=== PATIENT | female | born 1980 | race Caucasian/White ===

== ENCOUNTER 2023-01-24 10:17 | Emergency (ER) | payer MEDICARE ==
--- NOTE | 2023-01-24 10:24 | ERPHSYRPT ---
- History of Present Illness Time Seen by Provider: 01/24/23 10:24 Source: patient, EMS Exam Limitations: no limitations Physician History: This is an obese 42-year-old white female patient who has a history of von Hippel-Lindau disease and presents to our emergency department by the paramedics at [facility] who provided us independent medical history. In addition, I reviewed the [facility] emergency department visit that this patient had on 01/19/2023. This is another source of independent medical history. Patient was seen at [facility] emergency department on 01/19/2023 because of complaints of right flank pain. At that visit, patient was found to have a 30 mm right basal lung mass. She was to be scheduled to see an oncologist in [place]. The e xact date and time of the appointment is pending. Over the weekend, since that visit, she started having worsening shortness of breath. The patient does see a pain specialist and this specialist is a physician out of [facility]. She felt that she wanted to be seen at our facility. The paramedics were contacted because of complaints of shortness of breath. Patient appeared short of breath and so the paramedics placed her on 4 L oxygen via nasal cannula. Patient arrived to our emergency department with an oxygenation saturation level of 96% on 4 L facemask. Patient denies chest pain. However she still complains of her right flank pain. Timing/Duration: day(s) (3), worse Severity of Dyspnea-Max: mild (To moderate) Severity of Dyspnea-Current: mild (To moderate) Possible Cause: occasional episodes Modifying Factors: Improves With: activity (Worsens) Associated Symptoms: anxiety, No chest pain/discomfort, No wheezing, No hemoptysis, No calf pain Allergies/Adverse Reactions: peanut Allergy (Verified 01/24/23 10:28) Home Medications: Albuterol 2.5 mg/3 ml Neb [Proventil 2.5 mg/3 ml Neb] 2 puff IH Q4H PRN PRN 01/24/23 [History] Amitriptyline HCl 25 mg [Amitriptyline 25 mg Tablet] 1 tab PO HS 01/24/23 [History] Budesonide 0.5 mg/2 ml [Pulmicort 0.5 mg/2 ml Respules] 1 puff IH DAILY 01/24/23 [History] Duloxetine HCl 1 tab PO BID 01/24/23 [History] Gabapentin 1 tab PO TID 01/24/23 [History] Oxycodone HCl/Acetaminophen [Percocet 5-325 mg Tablet] 1 tab PO QID PRN 01/24/23 [History] Travel Risk - International Travel Have you traveled outside of the country in past 3 weeks: No - Coronavirus Screening Are you exhibiting any of the following symptoms?: Yes Symptoms: Fever, Shortness of Breath Close contact with a COVID-19 positive Pt in past 14-21 Days: No - Review of Systems Constitutional: Fever Eyes: No Symptoms Ears, Nose, & Throat: No Symptoms Respiratory: Dyspnea, Dyspnea on Exertion (JAMES) Cardiac: No Symptoms Abdominal/Gastrointestinal: No Symptoms Genitourinary Symptoms: No Symptoms Musculoskeletal: No Symptoms Skin: No Symptoms Neurological: No Symptoms Psychological: No Symptoms Endocrine: No Symptoms Hematologic/Lymphatic: No Symptoms Immunological/Allergic: No Symptoms All Other Systems: Reviewed and Negative - Past Medical History Pertinent Past Medical History: Yes - Past Surgical History Past Surgical History: Yes - Nursing Vital Signs Nursing Vital Signs: Initial Vital Signs Temperature 100.0 F 01/24/23 10:29 Pulse Rate 107 H 01/24/23 10:29 Respiratory Rate 39 H 01/24/23 10:29 Blood Pressure 110/81 01/24/23 10:29 O2 Sat by Pulse Oximetry 90 L 01/24/23 10:29 Pain Scale Pain Intensity 0 - Physical Exam General Appearance: no apparent distress, alert, anxiety, obese Eye Exam: PERRL/EOMI, eyes nml inspection Ears, Nose, Throat Exam: hearing grossly normal, normal ENT inspection, normal pharynx Neck Exam: normal inspection, non-tender, supple, full range of motion Respiratory Exam: normal breath sounds, lungs clear, airway intact, No chest tenderness, No respiratory distress Cardiovascular/Chest Exam: tachycardia Abdominal/Gastrointestinal Exam: soft, normal bowel sounds, No tenderness Rectal Exam: not done Extremity Exam: non-tender Neurologic Exam: alert, oriented x 3, cooperative, seismograph shooter II-XII nml as tested, sensation nml Skin Exam: normal color, warm, dry Lymphatic Exam: No adenopathy SpO2 Interpretation: hypoxic O2 Delivery: Room Air - Course Nursing assessment & vital signs reviewed: Yes EKG Interpreted by Me: RATE (106), Sinus Tach, NORMAL AXIS, NORMAL INTERVALS, NORMAL QRS, NORMAL ST-T, Other (No acute ischemic changes on today's twelve-lead EKG) Ordered Tests: Active Orders 24 hr Category Date Time Status EKG-ER Only STAT Care 01/24/23 10:44 Active IV Insertion STAT Care 01/24/23 10:44 Active Pulse Oximetry (ED) STAT Care 01/24/23 10:44 Active CHEST 1 VIEW (PORTABLE) Stat Exams 01/24/23 10:44 Completed CHEST WITH CONTRAST [CT] Stat Exams 01/24/23 12:37 Completed ABG [ARTERIAL BLOOD GASES] Urgent Lab 01/24/23 13:30 Completed ARTERIAL BLOOD GASES Stat Lab 01/24/23 10:50 Completed BLOOD CULTURE Stat Lab 01/24/23 11:01 Received CBC W DIFF Stat Lab 01/24/23 10:35 Completed CMP Stat Lab 01/24/23 10:35 Completed D-DIMER QUANTITATIVE Stat Lab 01/24/23 10:35 Completed NT PRO BNPII Stat Lab 01/24/23 10:35 Completed TROPONIN Q4H Lab 01/24/23 10:35 Completed TROPONIN Q4H Lab 01/24/23 14:25 Completed TROPONIN Q4H Lab 01/24/23 18:45 Ordered BiPap/CPAP STAT RT 01/24/23 13:42 Active Respiratory Therapy Assessment DAILY RT 01/24/23 13:19 Active Medication Summary Generic Name Dose Route Start Last Admin Trade Name Freq PRN Reason Stop Dose Admin Sodium Chloride 1,000 mls @ 999 mls/hr 01/24/23 15:07 01/24/23 15:17 Sodium Chloride 0.9% 1000 Ml IV 01/24/23 16:07 999 mls/hr .Q1H1M STA Administration Discontinued Medications Generic Name Dose Route Start Last Admin Trade Name Freq PRN Reason Stop Dose Admin Albuterol Sulfate 2.5 mg 01/24/23 13:14 01/24/23 13:16 Albuterol Sulfate 2.5 Mg/3 Ml Neb IH 01/24/23 13:15 2.5 mg STAT ONE Administration Albuterol Sulfate Confirm 01/24/23 13:15 Albuterol Sulfate 2.5 Mg/3 Ml Neb Administered 01/24/23 13:16 Dose 2.5 mg IH .STK-MED ONE Methylprednisolone Sodium 0 mg 01/24/23 13:14 01/24/23 13:31 Succinate 125 mg/ Sterile IV 01/24/23 13:15 125 mg Water 2 ml STAT ONE Administration Enoxaparin Sodium 130 mg 01/24/23 13:13 01/24/23 13:33 Enoxaparin Sodium 150 Mg/Ml Syringe SQ 01/24/23 13:14 130 mg STAT ONE Administration Sodium Chloride 500 mls @ 500 mls/hr 01/24/23 12:37 01/24/23 13:58 Sodium Chloride 0.9% 500 Ml IV 01/24/23 13:36 Infused .Q1H ONE Infusion Sodium Chloride Confirm 01/24/23 12:50 Sodium Chloride 0.9% 500 Ml Administered 01/24/23 12:51 Dose 500 mls @ ud IV .STK-MED ONE Sodium Chloride Confirm 01/24/23 15:15 Sodium Chloride 0.9% 1000 Ml Administered 01/24/23 15:16 Dose 1,000 mls @ ud .ROUTE .STK-MED ONE Lorazepam 1 mg 01/24/23 12:37 01/24/23 12:47 Lorazepam 2 Mg/1 Ml 2 Mg Vial IV 01/24/23 12:38 1 mg STAT ONE Administration Lorazepam Confirm 01/24/23 12:47 Lorazepam 2 Mg/1 Ml 2 Mg Vial Administered 01/24/23 12:48 Dose 2 mg .ROUTE .STK-MED ONE Methylprednisolone Sodium Succinate Confirm 01/24/23 13:30 Methylprednis Sod Succ 125 Mg/2 Ml Vial Administered 01/24/23 13:31 Dose 125 mg .ROUTE .STK-MED ONE Morphine Sulfate 4 mg 01/24/23 11:10 01/24/23 11:17 Morphine Sulfate 4 Mg/Ml Injection IV 01/24/23 11:11 4 mg STAT ONE Administration Morphine Sulfate Confirm 01/24/23 11:16 Morphine Sulfate 4 Mg/Ml Injection Administered 01/24/23 11:17 Dose 4 mg .ROUTE .STK-MED ONE Morphine Sulfate 2 mg 01/24/23 13:14 01/24/23 14:07 Morphine Sulfate 2 Mg/Ml Inj IV 01/24/23 13:15 Not Given STAT ONE Morphine Sulfate Confirm 01/24/23 13:27 Morphine Sulfate 2 Mg/Ml Inj Administered 01/24/23 13:28 Dose 2 mg .ROUTE .STK-MED ONE Ondansetron HCl 4 mg 01/24/23 11:10 01/24/23 11:17 Ondansetron Hcl 4 Mg/2 Ml Vial IV 01/24/23 11:11 4 mg STAT ONE Administration Ondansetron HCl Confirm 01/24/23 11:16 Ondansetron Hcl 4 Mg/2 Ml Vial Administered 01/24/23 11:17 Dose 4 mg .ROUTE .STK-MED ONE Sterile Water Confirm 01/24/23 13:30 Water For Injection,Sterile 10 Ml Vial Administered 01/24/23 13:31 Dose 10 ml IJ .STK-MED ONE Lab/Rad Data: Laboratory Result Diagrams 01/24/23 10:35 01/24/23 10:35 Laboratory Results 01/24/23 01/24/23 01/24/23 Range/Units 14:25 13:30 10:50 WBC (4.0-10.5) x10^3/uL RBC (4.1-5.4) x10^6/uL Hgb (12.0-16.0) g/dL Hct (35-47) % MCV (78-100) fL MCH (26-32) pg MCHC (32-36) g/dL RDW (11.5-14.0) % Plt Count (150-450) x10^3/uL MPV (7.5-11.0) fL Gran % (36.0-66.0) % Immature Gran % (Auto) (0.00-0.4) % Nucleat RBC Rel Count (0.00-0.1) % Eos # (Auto) (0-0.5) x10^3/uL Immature Gran # (Auto) (0.00-0.03) x10^3u/L Absolute Lymphs (auto) (1.0-4.6) x10^3/uL Absolute Monos (auto) (0.0-1.3) x10^3/uL Absolute Nucleated RBC (0.00-0.01) x10^3u/L Lymphocytes % (24.0-44.0) % Monocytes % (0.0-12.0) % Eosinophils % (0.00-5.0) % Basophils % (0.0-0.4) % Absolute Granulocytes (1.4-6.9) x10^3/uL Basophils # (0-0.4) x10^3/uL D-Dimer (0.0-0.50) mg/L Puncture Site LEFT RADIAL pCO2 39 (35-45) mmHg pO2 71 L (75-100) mmHg Base Excess -2.5 L (-2.0-2.0) O2 Saturation 93.2 L (94-100) g/dF ABG pH 7.37 (7.35-7.45) ABG HCO3 22.5 (22-28) ABG O2 Sat (Measured) 96.2 (95-100) % El Test NOT APPLICABLE A-a Gradient 80 a/A Ratio 0.47 Hemoglobin 13.3 Carboxyhemoglobin 2.2 (0.0-6.9) % THgb Methemoglobin 0.9 L (1.4-1.5) % Temperature 37.0 C POC O2 Flow Rate 28 % Sodium (137-145) mmol/L Potassium 4.8 (3.5-5.1) mmol/L Chloride (98-107) mmol/L Carbon Dioxide (22-30) mmol/L Anion Gap (5-15) MEQ/L BUN (7-17) mg/dL Creatinine (0.52-1.04) mg/dL Estimated GFR ML/MIN Glucose (74-106) mg/dL Calcium (8.4-10.2) mg/dL Total Bilirubin (0.2-1.3) mg/dL AST (14-36) U/L ALT (0-35) U/L Alkaline Phosphatase (38-126) U/L Troponin I < 0.012 (0.000-0.034) ng/mL NT-Pro-B Natriuret Pep (<300) pg/mL Serum Total Protein (6.3-8.2) g/dL Albumin (3.5-5.0) g/dL Influenza Type A Ag NEGATIVE (NEGATIVE) Influenza Type B Ag NEGATIVE (NEGATIVE) RSV (PCR) NEGATIVE (NEGATIVE) SARS-CoV-2 (PCR) NEGATIVE (NEGATIVE) 01/24/23 01/24/23 01/24/23 Range/Units 10:50 10:35 10:35 WBC (4.0-10.5) x10^3/uL RBC (4.1-5.4) x10^6/uL Hgb (12.0-16.0) g/dL Hct (35-47) % MCV (78-100) fL MCH (26-32) pg MCHC (32-36) g/dL RDW (11.5-14.0) % Plt Count (150-450) x10^3/uL MPV (7.5-11.0) fL Gran % (36.0-66.0) % Immature Gran % (Auto) (0.00-0.4) % Nucleat RBC Rel Count (0.00-0.1) % Eos # (Auto) (0-0.5) x10^3/uL Immature Gran # (Auto) (0.00-0.03) x10^3u/L Absolute Lymphs (auto) (1.0-4.6) x10^3/uL Absolute Monos (auto) (0.0-1.3) x10^3/uL Absolute Nucleated RBC (0.00-0.01) x10^3u/L Lymphocytes % (24.0-44.0) % Monocytes % (0.0-12.0) % Eosinophils % (0.00-5.0) % Basophils % (0.0-0.4) % Absolute Granulocytes (1.4-6.9) x10^3/uL Basophils # (0-0.4) x10^3/uL D-Dimer (0.0-0.50) mg/L Puncture Site RIGHT RADIAL pCO2 35 (35-45) mmHg pO2 79 (75-100) mmHg Base Excess -1.3 (-2.0-2.0) O2 Saturation 94.7 (94-100) g/dF ABG pH 7.42 (7.35-7.45) ABG HCO3 22.7 (22-28) ABG O2 Sat (Measured) 98.0 (95-100) % El Test YES A-a Gradient 134 a/A Ratio 0.37 Hemoglobin 13.8 Carboxyhemoglobin 2.4 (0.0-6.9) % THgb Methemoglobin 1.0 L (1.4-1.5) % Temperature 37.0 C POC O2 Flow Rate 36 % Sodium 135 L (137-145) mmol/L Potassium 4.5 4.7 (3.5-5.1) mmol/L Chloride 99 (98-107) mmol/L Carbon Dioxide 21 L (22-30) mmol/L Anion Gap 19.0 H (5-15) MEQ/L BUN 12 (7-17) mg/dL Creatinine 0.90 (0.52-1.04) mg/dL Estimated GFR > 60.0 ML/MIN Glucose 188 H (74-106) mg/dL Calcium 9.0 (8.4-10.2) mg/dL Total Bilirubin 1.70 H (0.2-1.3) mg/dL AST 25 (14-36) U/L ALT 21 (0-35) U/L Alkaline Phosphatase 164 H (38-126) U/L Troponin I < 0.012 (0.000-0.034) ng/mL NT-Pro-B Natriuret Pep 251 (<300) pg/mL Serum Total Protein 6.7 (6.3-8.2) g/dL Albumin 3.5 (3.5-5.0) g/dL Influenza Type A Ag (NEGATIVE) Influenza Type B Ag (NEGATIVE) RSV (PCR) (NEGATIVE) SARS-CoV-2 (PCR) (NEGATIVE) 01/24/23 01/24/23 Range/Units 10:35 10:35 WBC 20.7 H (4.0-10.5) x10^3/uL RBC 4.36 (4.1-5.4) x10^6/uL Hgb 12.9 (12.0-16.0) g/dL Hct 39.1 (35-47) % MCV 89.7 (78-100) fL MCH 29.6 (26-32) pg MCHC 33.0 (32-36) g/dL RDW 12.6 (11.5-14.0) % Plt Count 485 H (150-450) x10^3/uL MPV 9.3 (7.5-11.0) fL Gran % 84.1 H (36.0-66.0) % Immature Gran % (Auto) 1.0 H (0.00-0.4) % Nucleat RBC Rel Count 0.0 (0.00-0.1) % Eos # (Auto) 0.14 (0-0.5) x10^3/uL Immature Gran # (Auto) 0.20 H (0.00-0.03) x10^3u/L Absolute Lymphs (auto) 1.71 (1.0-4.6) x10^3/uL Absolute Monos (auto) 1.17 (0.0-1.3) x10^3/uL Absolute Nucleated RBC 0.00 (0.00-0.01) x10^3u/L Lymphocytes % 8.3 L (24.0-44.0) % Monocytes % 5.7 (0.0-12.0) % Eosinophils % 0.7 (0.00-5.0) % Basophils % 0.2 (0.0-0.4) % Absolute Granulocytes 17.42 H (1.4-6.9) x10^3/uL Basophils # 0.05 (0-0.4) x10^3/uL D-Dimer 2.88 H* (0.0-0.50) mg/L Puncture Site pCO2 (35-45) mmHg pO2 (75-100) mmHg Base Excess (-2.0-2.0) O2 Saturation (94-100) g/dF ABG pH (7.35-7.45) ABG HCO3 (22-28) ABG O2 Sat (Measured) (95-100) % El Test A-a Gradient a/A Ratio Hemoglobin Carboxyhemoglobin (0.0-6.9) % THgb Methemoglobin (1.4-1.5) % Temperature C POC O2 Flow Rate % Sodium (137-145) mmol/L Potassium (3.5-5.1) mmol/L Chloride (98-107) mmol/L Carbon Dioxide (22-30) mmol/L Anion Gap (5-15) MEQ/L BUN (7-17) mg/dL Creatinine (0.52-1.04) mg/dL Estimated GFR ML/MIN Glucose (74-106) mg/dL Calcium (8.4-10.2) mg/dL Total Bilirubin (0.2-1.3) mg/dL AST (14-36) U/L ALT (0-35) U/L Alkaline Phosphatase (38-126) U/L Troponin I (0.000-0.034) ng/mL NT-Pro-B Natriuret Pep (<300) pg/mL Serum Total Protein (6.3-8.2) g/dL Albumin (3.5-5.0) g/dL Influenza Type A Ag (NEGATIVE) Influenza Type B Ag (NEGATIVE) RSV (PCR) (NEGATIVE) SARS-CoV-2 (PCR) (NEGATIVE) - Progress Progress: re-examined Air Movement: fair Progress Note: 01/24/23 13:42 Chest x-ray was interpreted by the radiologist and I reviewed the impression. Shows right mid to lower lung opacity presumed known mass. There is mild left base subsegmental atelectasis/scarring. This patient's medical issue is 1 of high complexity. Level complexity in the work-up performed is based on review of the patient's past medical history, review of the patient's medication list, review of the patient's drug allergies, history of present illness, and physical findings on examination. The initial work-up included placement of intravenous line, chest x-ray, respiratory therapy evaluation, ABG, CBC, CMP, D-dimer, troponin level, twelve-lead EKG. The twelve-lead EKG and ABG results were reviewed and interpreted by me. Patient's D-dimer is 2.88 and her troponin level is within normal limits. The patient has normal GFR. We attempted to perform a CT scan of the chest with contrast to evaluate for pulmonary embolus. However, the patient did not to lerate lying flat. She returned back to the emergency department. It was noted that she was having wheezing, grunting episodes and more difficulty breathing. Respiratory therapy reevaluated the patient. We opted to place the patient on BiPAP. We repeated the arterial blood gas prior to placement on BiPAP. The repeat pH is now 7.39 down from 7.42. The CO2 was 34 and now 39. Clinically, the patient appears to have more struggling with the breathing. She does have leukocytosis with a left shift. Patient did give us permission to intubate her in the event we feel it is necessary. I did provide her with Solu-Medrol 125 mg intravenous x1 as well as Lovenox 130 mg subcutaneous x1. 01/24/23 14:50 CT scan of the chest with contrast shows no obvious pulmonary embolus. There is a large right mid to lower lung effusion. There is complete right lower lobe and to a lesser degree, right middle lobe atelectasis. 01/24/23 15:[address] Milton who is emergency department physician on at [facility]. I reviewed the above-stated history, physical findings and results of our work-up. I also discussed our interventions on this patient. He accepts the patient in transfer. Blood Culture(s) Obtained: Yes Counseled pt/family regarding: lab results, diagnosis, rad results Medical Desision Making - Independent Historian Additional History obtained from: Email Marketing Coordinator/EMT - External Record(s) Reviewed Records reviewed as a part of evaluation & management: Discharge Summary (From the emergency department at [facility]) - Diagnostic Testing Diagnostic test were ordered, analyzed, and reviewed by me: Yes Radiological Interpretation: Reviewed by me, Teleradiologist Report - Risk of complications The pt has a high risk of morbidity or mortality based on: Decision regarding hospitilization or escalation of hosp level of care - Departure Departure Disposition: Transfer Clinical Impression: Right lower lobe lung mass, Mass of lower lobe of left lung, Pleural effusion, right, Leukocytosis, Hypoxia, Fever Condition: Fair Critical Care Time: Yes Critical Care Time(excluding separately billable procedures): Critical 30-74 mins (45) Referrals: NAIDA LANTIGUA [Primary Care Provider] - Follow up/PCP as directed
[2023-01-24 10:47] VITALS: TEMP 100
[2023-01-24 10:58] LABS: A-aADO2 134; ABG HEMOGLOBIN 13.8; ABG POTASSIUM 4.5 (3.5-5.1); ABG SITE RIGHT RADIAL; ALLEN TEST OK? YES; ARTERIAL BLOOD GAS BASE EXCESS -1.3 (-2.0-2.0); ARTERIAL BLOOD GAS FIO2 36 %; ARTERIAL BLOOD GAS PCO2 35 mmHg (35-45); ARTERIAL BLOOD GAS PO2 79 mmHg (75-100); ARTERIAL BLOOD GAS pH 7.42 (7.35-7.45); CARBOXYHEMOGLOBIN 2.4 % THgb (0.0-6.9); HCO3- 22.7 (22-28); HGB O2 SAT 94.7 g/dF (94-100); paO2 pAO1 0.37
[2023-01-24 11:00] LABS: Absolute Neutrophil Ct (ANC) 17.42 x10^3/uL (1.4-6.9); BASOPHIL % 0.2 % (0.0-0.4); Basophil (Absolute #) 0.05 x10^3/uL (0-0.4); Eosinophil % 0.7 % (0.00-5.0); Eosinophil (Absolute #) 0.14 x10^3/uL (0-0.5); Hematocrit 39.1 % (35-47); Hemoglobin 12.9 g/dL (12.0-16.0); Lymphocyte (Absolute #) 1.71 x10^3/uL (1.0-4.6); Lymphocytes % 8.3 % (24.0-44.0); Mean Cell Volume 89.7 fL (78-100); Mean Corpuscular Hemoglobin 29.6 pg (26-32); Mean Platelet Volume 9.3 fL (7.5-11.0); Monocyte (Absolute #) 1.17 x10^3/uL (0.0-1.3); Monocytes % 5.7 % (0.0-12.0); Neutrophil % 84.1 % (36.0-66.0); Platelet Count 485 x10^3/uL (150-450); Red Blood Count 4.36 x10^6/uL (4.1-5.4); Red Cell Distribution Width 12.6 % (11.5-14.0); White Blood Count 20.7 x10^3/uL (4.0-10.5)
[2023-01-24] MEDS ORDERED: Zofran 4 MG/2 ML VIAL IV ONE (11:10)
[2023-01-24] MEDS ORDERED: MORPHINE SULFATE 4 MG INJ IV ONE (11:10)
[2023-01-24] MEDS ORDERED: Zofran 4 MG/2 ML VIAL ONE (11:16)
[2023-01-24] MEDS ORDERED: MORPHINE SULFATE 4 MG INJ ONE (11:16)
[2023-01-24 11:26] LABS: NT PRO BNPII 251 pg/mL (<300); TROPONIN < 0.012 ng/mL (0.000-0.034)
[2023-01-24 12:02] LABS: INFLUENZA A NEGATIVE (NEGATIVE); INFLUENZA B NEGATIVE (NEGATIVE); RESPIRATORY SYNCTIAL VIRUS NEGATIVE (NEGATIVE); SARS-CoV-2 Xpert Express NEGATIVE (NEGATIVE)
[2023-01-24 12:02] LABS: ALBUMIN 3.5 g/dL (3.5-5.0); ALKALINE PHOSPHATASE 164 U/L (38-126); BLOOD UREA NITROGEN 12 mg/dL (7-17); CHLORIDE 99 mmol/L (98-107); Carbon Dioxide 21 mmol/L (22-30); EST GLOMERULAR FILTRATION RATE > 60.0 ML/MIN; Glucose 188 mg/dL (74-106); Potassium 4.7 mmol/L (3.5-5.1); SGOT/AST 25 U/L (14-36); SGPT/ALT 21 U/L (0-35); SODIUM 135 mmol/L (137-145); Total Protein 6.7 g/dL (6.3-8.2)
--- NOTE | 2023-01-24 12:14 | XRAY ---
Indication: Short of breath. Recent diagnosis right lower lobe mass from [facility]. Comparison: None Portable chest demonstrates right mid to lower lung opacity presumed known mass. Mild left base subsegmental atelectasis/scarring. Heart not enlarged. Bony thorax intact.
[2023-01-24] MEDS ORDERED: Sodium Chloride 0.9% 500 ML 500 ML IV ONE ×2 (12:37→12:50)
[2023-01-24] MEDS ORDERED: Ativan 2 MG/1 ML VIAL IV ONE (12:37)
[2023-01-24] MEDS ORDERED: Ativan 2 MG/1 ML VIAL ONE (12:47)
[2023-01-24] MEDS ORDERED: ENOXAPARIN SODIUM SQ ONE (13:13)
[2023-01-24] MEDS ORDERED: PROVENTIL 2.5 MG/3 ML NEB IH ONE ×2 (13:14→13:15)
[2023-01-24] MEDS ORDERED: solu-MEDROL 125 MG, Sterile H2O 10 ml 2 ML IV ONE ×2 (13:14)
[2023-01-24] MEDS ORDERED: MORPHINE SULFATE 2 MG INJ ONE (13:27)
[2023-01-24] MEDS ORDERED: solu-MEDROL ONE (13:30)
[2023-01-24] MEDS ORDERED: Sterile H2O 10 ml IJ ONE (13:30)
[2023-01-24] MEDS: MORPHINE SULFATE 2 MG INJ IV ONE ×2 (13:31→14:07)
[2023-01-24 13:43] LABS: A-aADO2 80; ABG HEMOGLOBIN 13.3; ABG POTASSIUM 4.8 (3.5-5.1); ARTERIAL BLD GAS O2 SATURATION 96.2 % (95-100); ARTERIAL BLOOD GAS BASE EXCESS -2.5 (-2.0-2.0); ARTERIAL BLOOD GAS FIO2 28 %; ARTERIAL BLOOD GAS PCO2 39 mmHg (35-45); ARTERIAL BLOOD GAS PO2 71 mmHg (75-100); ARTERIAL BLOOD GAS pH 7.37 (7.35-7.45); CARBOXYHEMOGLOBIN 2.2 % THgb (0.0-6.9); HCO3- 22.5 (22-28); HGB O2 SAT 93.2 g/dF (94-100); Methhemoglobin 0.9 % (1.4-1.5); paO2 pAO1 0.47
[2023-01-24 13:44] LABS: ABG SITE LEFT RADIAL
--- NOTE | 2023-01-24 14:41 | XRAY ---
Indication: Short of breath. Elevated d-dimer. Recent diagnosis right lower lobe mass from [facility]. Multiple contiguous axial images obtained through the chest using 80 cc Isovue 370 contrast and PE protocol. Comparison: None Good opacification of the pulmonary arteries. No respiration artifact limits evaluation for pulmonary embolus. No obvious central pulmonary embolus. Heart not enlarged. Aorta is normal in course and caliber. 1.5 x 2.0 cm subcarinal prominent node. Lungs demonstrates large right mid to lower lung effusion. Complete right lower lobe and lesser degree right middle lobe atelectasis. Minimal bilateral mid to lower lung fibrosis/scarring. Bony thorax intact. Limited upper abdomen demonstrates fatty liver and cholecystectomy clips. Impression: 1. Pulmonary embolus evaluation limited by respiration artifact. No obvious pulmonary embolus. 2. Large right effusion with right lower lobe and lesser right middle lobe atelectasis. 3. Prominent subcarinal lymph node possibly reactive. Malignancy not completely excluded. 4. Incidental fatty liver.
[2023-01-24 14:46] VITALS: O2SAT 96
[2023-01-24] MEDS ORDERED: Sodium Chloride 0.9% 1000 ML 1,000 ML IV STA (15:07)
[2023-01-24] MEDS ORDERED: Sodium Chloride 0.9% 1000 ML 1,000 ML ONE (15:15)
[2023-01-24] MEDS ORDERED: Levofloxacin 500MG/100ML D5W 500 MG/100 ML BAG IV STA (15:33)
[2023-01-24] MEDS ORDERED: Levofloxacin 500MG/100ML D5W 500 MG/100 ML BAG IV ONE (15:38)
[2023-01-24 16:02] VITALS: BP 110/78; PULSE 103; RESP 25
== END 2023-01-24 16:25 | disposition short-term general hospital (02) ==
LOC: ED 10:17
DX: R91.8 Other nonspecific abnormal finding of lung field (principal); J90 Pleural effusion, not elsewhere classified; D72.829 Elevated white blood cell count, unspecified; R09.02 Hypoxemia; R50.9 Fever, unspecified; R06.02 Shortness of breath; R10.9 Unspecified abdominal pain; Z79.891 Long term (current) use of opiate analgesic; Z79.899 Other long term (current) drug therapy
CPT/HCPCS: 0241U; 36000; 36415; 36600; 71045; 71260; 80053; 82375; 82803; 83880; 84484; 85025; 85379; 87040; 93005; 94002; 94640; 94760; 96360; 96365; 96372; 96374; 96375; 99285; 99291; J1650; J1956; J2060; J2270; J2405; J2930; J7609; A9270-GY